=== PATIENT | female | born 1940 | race African-American/Black ===

== ENCOUNTER 2016-07-03 10:07 | Emergency (ER) | payer MEDICARE, MEDICAID ==
[~2016-07-03] VITALS: Ht 180.3 cm; Wt 72.5 kg
[~2016-07-03 10:07] MED LIST: ASPI-1093 PO; LOSA1TAB37 PO; METO25 PO
[2016-07-03] MEDS ORDERED: ASPIRIN 81 MG CHEWABLE TABLET PO ONE (10:30)
[2016-07-03 11:11] LABS: BASOPHILS % (AUTO) 0.4 % (0.0-2.0); EOSINOPHILS % (AUTO) 1.4 % (1.0-6.0); HEMATOCRIT 35.6 % (36-46); HEMOGLOBIN 11.9 g/dL (12.0-16.0); LYMPHOCYTES % (AUTO) 29.9 % (22.0-44.0); MEAN CORPUSCULAR HEMOGLOBIN 30.2 pg (26.0-34.0); MEAN CORPUSCULAR HGB CONC 33.4 G/dL (31.0-37.0); MEAN CORPUSCULAR VOLUME 91 fL (80-100); MONOCYTES # (AUTO) 0.4 K/uL (0.1-1.0); MONOCYTES % (AUTO) 11.8 % (2.0-9.0); NEUTROPHILS % (AUTO) 56.5 % (40.0-70.0); PLATELET COUNT (AUTO) 183 K/uL (150-450); RED BLOOD CELL COUNT(AUTO) 3.93 MIL/uL (4.00-5.20); RED CELL DISTRIBUTION WIDTH 13.8 % (11.5-14.5); WHITE BLOOD COUNT (AUTO) 3.5 K/uL (4.5-11.0)
[2016-07-03 11:12] LABS: RBC MORPHOLOGY COMMENT NORMAL RBC MORPH
[2016-07-03 11:20] LABS: ANION GAP 5 mmol/L (8-16); CALCIUM, TOTAL 10.1 mg/dL (8.8-10.5); CARBON DIOXIDE 31 mmol/L (22-29); CHLORIDE 102 mmol/L (98-107); CREATININE 1.03 mg/dL (0.60-1.30); GLOMERULAR FILTR. RATE CALC > 60 mL/min (>60); POTASSIUM 4.5 mmol/L (3.5-5.1); SODIUM SERUM 138 mmol/L (136-145); UREA NITROGEN, BLOOD 17 mg/dL (7-18)
[2016-07-03 11:28] LABS: PROTHROMBIN TIME 10.8 SEC (9.4-11.6)
[2016-07-03 11:32] LABS: B-TYPE NATRIURETIC PEPTIDE 178 pg/mL (0-100)
[2016-07-03 11:44] LABS: ALANINE AMINOTRANSFERASE 20 U/L (12-78); ALBUMIN 3.3 g/dL (3.4-5.0); ASPARTATE AMINOTRANSFERASE 17 U/L (15-37); BILIRUBIN,TOTAL 0.9 mg/dL (0.1-1.0); CREATINE KINASE MB 0.9 ng/mL (0-5); CREATINE KINASE, TOTAL 78 U/L (26-192); TOTAL PROTEIN, SERUM 7.2 g/dL (6.4-8.2)
[2016-07-03 12:31] LABS: APPEARANCE,URINE CLEAR (CLEAR); GLUCOSE, URINE (UA) NEGATIVE (NEGATIVE); KETONES,URINE NEGATIVE (NEGATIVE); LEUKOCYTE ESTERASE ,URINE SMALL (NEGATIVE); OCCULT BLOOD,URINE TRACE (NEGATIVE); PH,URINE 6.5 (5.0-8.0); PROTEIN,URINE NEGATIVE (NEGATIVE)
[2016-07-03 12:48] LABS: ADD UA MICROSCOPIC YES; RBC,URINE 0-2 /HPF (0-2)
[2016-07-03 12:50] LABS: SQUAMOUS EPITHELIAL CELL,UR Rare /LPF (None Seen)
[2016-07-03] MEDS ORDERED: KETOROLAC TROMETHAMINE 30 MG/ML VIAL IVP ONE (14:00)
[2016-07-03 14:42] VITALS: BP 150/84
== END 2016-07-03 14:45 | disposition home or self-care (01) ==
LOC: EMS 10:08
DX: R07.89 Other chest pain (principal); K21.9 Gastro-esophageal reflux disease without esophagitis; I10 Essential (primary) hypertension
CPT/HCPCS: 36415; 71010; 80053; 81001; 82550; 82553; 83880; 84484; 85025; 85610; 85730; 87077; 87086; 87186; 93005; 96374; 99285; J1885

== ENCOUNTER 2016-12-21 17:54 | Emergency (ER) | payer MEDICARE, MEDICAID ==
[~2016-12-21] VITALS: Ht 180.3 cm; Wt 71.4 kg
[2016-12-21 18:17] LABS: GLUCOSE,POINT OF CARE 97 MG/DL (70-110)
[2016-12-21] MEDS ORDERED: PRAV20TA4 PO (18:19)
[2016-12-21 18:58] LABS: BASOPHILS # (AUTO) 0.04 K/uL (0.00-0.20); BASOPHILS % (AUTO) 0.9 % (0.0-2.0); EOSINOPHILS # (AUTO) 0.09 K/uL (0.00-0.70); EOSINOPHILS % (AUTO) 2.08 % (1.0-6.0); HEMATOCRIT 36.7 % (36-46); HEMOGLOBIN 12.3 g/dL (12.0-16.0); LYMPHOCYTES # (AUTO) 1.3 K/uL (1.0-4.8); LYMPHOCYTES % (AUTO) 30.4 % (22.0-44.0); MEAN CORPUSCULAR HEMOGLOBIN 30.7 pg (26.0-34.0); MEAN CORPUSCULAR HGB CONC 33.5 G/dL (31.0-37.0); MEAN CORPUSCULAR VOLUME 92 fL (80-100); MONOCYTES # (AUTO) 0.5 K/uL (0.1-1.0); MONOCYTES % (AUTO) 11.2 % (2.0-9.0); NEUTROPHILS # (AUTO) 2.4 K/uL (1.8-7.7); NEUTROPHILS % (AUTO) 55.5 % (40.0-70.0); PLATELET COUNT (AUTO) 160 K/uL (150-450); RED BLOOD CELL COUNT(AUTO) 4.01 MIL/uL (4.00-5.20); WHITE BLOOD COUNT (AUTO) 4.3 K/uL (4.5-11.0)
[2016-12-21 19:06] LABS: CALCIUM, TOTAL 10.4 mg/dL (8.8-10.5); CREATININE 1.11 mg/dL (0.60-1.30); POTASSIUM 3.7 mmol/L (3.5-5.1)
[2016-12-21 19:12] LABS: ALBUMIN 3.5 g/dL (3.4-5.0); BILIRUBIN,TOTAL 0.9 mg/dL (0.1-1.0); TOTAL PROTEIN, SERUM 7.6 g/dL (6.4-8.2)
[2016-12-21] MEDS ORDERED: METO50 PO (20:00)
[2016-12-21] MEDS ORDERED: SODIUM CHLORIDE 0.9% 500 ML IV ONE (20:00)
[2016-12-21] MEDS ORDERED: MECLIZINE HCL 25 MG TABLET PO ONE (20:00)
[2016-12-21 21:23] LABS: APPEARANCE,URINE CLEAR (CLEAR); GLUCOSE, URINE (UA) NEGATIVE (NEGATIVE); KETONES,URINE NEGATIVE (NEGATIVE); LEUKOCYTE ESTERASE ,URINE MODERATE (NEGATIVE); OCCULT BLOOD,URINE TRACE (NEGATIVE); PROTEIN,URINE NEGATIVE (NEGATIVE)
[2016-12-21 21:24] LABS: ADD UA MICROSCOPIC YES
[2016-12-21 21:50] LABS: SQUAMOUS EPITHELIAL CELL,UR Few /LPF (None Seen)
[2016-12-21 21:52] LABS: RBC,URINE 0-2 /HPF (0-2)
[2016-12-21] MEDS ORDERED: NITROFURANTOIN/NITROFURAN MAC 100 MG CAPSULE [MACROBID] PO ONE (22:00)
[2016-12-21] MEDS ORDERED: CIPROFLOXACIN HCL 250 MG TABLET PO ONE (22:15)
[2016-12-21 22:30] VITALS: BP 141/82
== END 2016-12-21 22:14 | disposition home or self-care (01) ==
LOC: EMS 17:57
DX: R42 Dizziness and giddiness (principal); N39.0 Urinary tract infection, site not specified; I10 Essential (primary) hypertension; K21.9 Gastro-esophageal reflux disease without esophagitis; Z88.8 Allergy status to other drugs, medicaments and biological substances; Z79.82 Long term (current) use of aspirin; Z90.710 Acquired absence of both cervix and uterus
CPT/HCPCS: 36415; 70450; 80053; 81001; 82962; 84484; 85025; 87077; 87086; 87186; 93005; 96360; 99285; J7040

== ENCOUNTER 2017-07-04 22:55 | Emergency (ER) | payer MEDICARE, MEDICAID ==
[~2017-07-04] VITALS: Ht 180.3 cm; Wt 70.9 kg
[~2017-07-04 22:55] MED LIST changes: -ASPI-1093 PO; +ASPI-1182 PO; -METO25 PO; +METO50 PO; +PRAV20TA4 PO
[2017-07-05 00:48] VITALS: BP 134/80
== END 2017-07-05 00:49 | disposition home or self-care (01) ==
LOC: EMS 22:56
DX: J06.9 Acute upper respiratory infection, unspecified (principal); E78.00 Pure hypercholesterolemia, unspecified; I10 Essential (primary) hypertension; K21.9 Gastro-esophageal reflux disease without esophagitis; Z79.82 Long term (current) use of aspirin; Z88.8 Allergy status to other drugs, medicaments and biological substances
CPT/HCPCS: 99283

== ENCOUNTER 2017-08-30 14:21 | Emergency (ER) | payer MEDICARE, MEDICAID ==
[~2017-08-30] VITALS: Ht 180.3 cm; Wt 63.6 kg
[2017-08-30 14:28] VITALS: BP 131/64
[2017-08-30] MEDS ORDERED: ACETAMINOPHEN 325 MG TABLET PO ONE (17:15)
== END 2017-08-30 18:57 | disposition home or self-care (01) ==
LOC: EMS 14:22
DX: M25.561 Pain in right knee (principal); M25.562 Pain in left knee; K21.9 Gastro-esophageal reflux disease without esophagitis; E78.00 Pure hypercholesterolemia, unspecified; I10 Essential (primary) hypertension; Z79.82 Long term (current) use of aspirin; Z88.8 Allergy status to other drugs, medicaments and biological substances; W10.9XXA Fall (on) (from) unspecified stairs and steps, initial encounter; Y93.89 Activity, other specified; Y92.59 Other trade areas as the place of occurrence of the external cause; Y99.8 Other external cause status
CPT/HCPCS: 99284

== ENCOUNTER 2017-10-24 20:19 | Emergency (ER) | payer OTHER, MEDICARE, MEDICAID ==
[~2017-10-24] VITALS: Ht 180.3 cm; Wt 72.7 kg
[2017-10-24 22:28] LABS: BASOPHILS % (AUTO) 0.5 % (0.0-2.0); EOSINOPHILS % (AUTO) 2.2 % (1.0-6.0); HEMATOCRIT 35.6 % (36-46); HEMOGLOBIN 12.3 g/dL (12.0-16.0); LYMPHOCYTES # (AUTO) 1.7 K/uL (1.0-4.8); LYMPHOCYTES % (AUTO) 35.2 % (22.0-44.0); MEAN CORPUSCULAR HEMOGLOBIN 30.8 pg (26.0-34.0); MEAN CORPUSCULAR HGB CONC 34.6 G/dL (31.0-37.0); MEAN CORPUSCULAR VOLUME 89 fL (80-100); MONOCYTES # (AUTO) 0.5 K/uL (0.1-1.0); MONOCYTES % (AUTO) 10.8 % (2.0-9.0); NEUTROPHILS # (AUTO) 2.4 K/uL (1.8-7.7); NEUTROPHILS % (AUTO) 51.3 % (40.0-70.0); PLATELET COUNT (AUTO) 178 K/uL (150-450); RED BLOOD CELL COUNT(AUTO) 3.99 MIL/uL (4.00-5.20); RED CELL DISTRIBUTION WIDTH 13.7 % (11.5-14.5)
[2017-10-24 22:41] LABS: CALCIUM, TOTAL 10.3 mg/dL (8.8-10.5); CREATININE 1.12 mg/dL (0.60-1.30); POTASSIUM 4.5 mmol/L (3.5-5.1)
[2017-10-24 22:47] LABS: ALBUMIN 3.7 g/dL (3.4-5.0); BILIRUBIN,TOTAL 0.9 mg/dL (0.1-1.0); TOTAL PROTEIN, SERUM 7.9 g/dL (6.4-8.2)
[2017-10-24 23:45] VITALS: BP 135/79
== END 2017-10-24 23:55 | disposition home or self-care (01) ==
LOC: EMS 20:19
DX: I10 Essential (primary) hypertension (principal); K21.9 Gastro-esophageal reflux disease without esophagitis; E78.00 Pure hypercholesterolemia, unspecified; D64.9 Anemia, unspecified; Z79.82 Long term (current) use of aspirin; Z79.899 Other long term (current) drug therapy; Z88.8 Allergy status to other drugs, medicaments and biological substances
CPT/HCPCS: 93005; 99285

== ENCOUNTER 2019-06-18 17:47 | Emergency (ER) | payer MEDICARE, MEDICAID ==
[~2019-06-18] VITALS: Ht 180.3 cm; Wt 75.0 kg
[~2019-06-18 17:47] MED LIST changes: +ASPI-1111 PO; -ASPI-1182 PO
[2019-06-18 18:24] LABS: BASOPHILS % (AUTO) 0.6 % (0.0-2.0); EOSINOPHILS % (AUTO) 1.6 % (1.0-6.0); HEMATOCRIT 38.4 % (36-46); LYMPHOCYTES # (AUTO) 1.6 K/uL (1.0-4.8); LYMPHOCYTES % (AUTO) 32.3 % (22.0-44.0); MEAN CORPUSCULAR HGB CONC 33.7 G/dL (31.0-37.0); MEAN CORPUSCULAR VOLUME 92 fL (80-100); MONOCYTES # (AUTO) 0.5 K/uL (0.1-1.0); MONOCYTES % (AUTO) 10.8 % (2.0-9.0); NEUTROPHILS # (AUTO) 2.7 K/uL (1.8-7.7); NEUTROPHILS % (AUTO) 54.7 % (40.0-70.0); PLATELET COUNT (AUTO) 197 K/uL (150-450); RED BLOOD CELL COUNT(AUTO) 4.18 MIL/uL (4.00-5.20); RED CELL DISTRIBUTION WIDTH 13.6 % (11.5-14.5)
[2019-06-18 18:32] LABS: CALCIUM, TOTAL 9.9 mg/dL (8.8-10.5); CREATININE 1.4 mg/dL (0.60-1.30); POTASSIUM 3.9 mmol/L (3.5-5.1)
[2019-06-18 18:38] LABS: ALBUMIN 3.8 g/dL (3.4-5.0); BILIRUBIN,TOTAL 0.8 mg/dL (0.1-1.0)
[2019-06-18 22:24] VITALS: BP 167/75
[2019-06-18] MEDS ORDERED: FAMOTIDINE 20 MG TABLET PO ONE (22:30)
== END 2019-06-18 23:00 | disposition home or self-care (01) ==
LOC: EMS 17:49
DX: R07.89 Other chest pain (principal); E78.00 Pure hypercholesterolemia, unspecified; I10 Essential (primary) hypertension; K21.9 Gastro-esophageal reflux disease without esophagitis; Z90.710 Acquired absence of both cervix and uterus; Z98.890 Other specified postprocedural states; Z79.899 Other long term (current) drug therapy; Z85.038 Personal history of other malignant neoplasm of large intestine; Z79.82 Long term (current) use of aspirin; Z88.8 Allergy status to other drugs, medicaments and biological substances
CPT/HCPCS: 93005

== ENCOUNTER 2021-04-16 11:12 | Emergency (ER) | payer MEDICAID, MEDICARE ==
[~2021-04-16] VITALS: Ht 180.3 cm; Wt 79.0 kg
[~2021-04-16 11:12] MED LIST changes: -ASPI-1111 PO; +ASPI-1444 PO
[2021-04-16 12:33] LABS: BASOPHILS % (AUTO) 0.5 % (0.0-2.0); HEMATOCRIT 42.1 % (36-46); HEMOGLOBIN 14.1 g/dL (12.0-16.0); LYMPHOCYTES # (AUTO) 1.6 K/uL (1.0-4.8); LYMPHOCYTES % (AUTO) 27.1 % (22.0-44.0); MEAN CORPUSCULAR HGB CONC 33.4 G/dL (31.0-37.0); MEAN CORPUSCULAR VOLUME 93 fL (80-100); MONOCYTES # (AUTO) 0.6 K/uL (0.1-1.0); MONOCYTES % (AUTO) 9.8 % (2.0-9.0); NEUTROPHILS # (AUTO) 3.6 K/uL (1.8-7.7); NEUTROPHILS % (AUTO) 61.6 % (40.0-70.0); PLATELET COUNT (AUTO) 195 K/uL (150-450); RED BLOOD CELL COUNT(AUTO) 4.55 MIL/uL (4.00-5.20); RED CELL DISTRIBUTION WIDTH 13.9 % (11.5-14.5)
[2021-04-16 12:43] LABS: CALCIUM, TOTAL 8.7 mg/dL (8.8-10.5); CREATININE 1.3 mg/dL (0.60-1.30); POTASSIUM 3.5 mmol/L (3.5-5.1)
[2021-04-16 12:49] LABS: ALBUMIN 3.8 g/dL (3.4-5.0); TOTAL PROTEIN, SERUM 8.6 g/dL (6.4-8.2)
[2021-04-16 13:17] LABS: APPEARANCE,URINE CLEAR (CLEAR); BILIRUBIN,URINE NEGATIVE (NEGATIVE); GLUCOSE, URINE (UA) NEGATIVE (NEGATIVE); KETONES,URINE NEGATIVE (NEGATIVE); LEUKOCYTE ESTERASE ,URINE NEGATIVE (NEGATIVE); NITRATE,URINE NEGATIVE (NEGATIVE); OCCULT BLOOD,URINE TRACE (NEGATIVE); PROTEIN,URINE NEGATIVE (NEGATIVE); UROBILINOGEN,URINE 0.2 mg/dL (<=1.0)
[2021-04-16 13:31] LABS: RBC,URINE None Seen /HPF (0-2)
[2021-04-16 13:32] LABS: BACTERIA,URINE None Seen /HPF (None Seen); SQUAMOUS EPITHELIAL CELL,UR Few /LPF (None Seen)
[2021-04-16 13:45] VITALS: BP 119/63
== END 2021-04-16 14:34 | disposition home or self-care (01) ==
LOC: EMS 11:12
DX: N39.0 Urinary tract infection, site not specified (principal); I10 Essential (primary) hypertension
CPT/HCPCS: 80053; 81001; 85025; 87077; 87086; 87186; 99283

== ENCOUNTER 2021-05-06 02:31 | Emergency (ER) | payer MEDICARE ==
[~2021-05-06] VITALS: Ht 180.3 cm; Wt 79.0 kg
[2021-05-06] MEDS ORDERED: CALC0.5C PO (02:44)
[2021-05-06] MEDS ORDERED: MAG HYDROX/AL HYDROX/SIMETH 30 ML SUSP UDCUP PO ONE (02:45)
[2021-05-06] MEDS ORDERED: ACETAMINOPHEN 500 MG TABLET PO ONE (02:45)
[2021-05-06 02:55] LABS: BASOPHILS % (AUTO) 0.7 % (0.0-2.0); EOSINOPHILS % (AUTO) 1.4 % (1.0-6.0); HEMATOCRIT 39.3 % (36-46); HEMOGLOBIN 13.6 g/dL (12.0-16.0); LYMPHOCYTES # (AUTO) 1.5 K/uL (1.0-4.8); LYMPHOCYTES % (AUTO) 31.9 % (22.0-44.0); MEAN CORPUSCULAR HGB CONC 34.6 G/dL (31.0-37.0); MEAN CORPUSCULAR VOLUME 90 fL (80-100); MONOCYTES # (AUTO) 0.5 K/uL (0.1-1.0); NEUTROPHILS # (AUTO) 2.7 K/uL (1.8-7.7); PLATELET COUNT (AUTO) 205 K/uL (150-450); RED BLOOD CELL COUNT(AUTO) 4.38 MIL/uL (4.00-5.20); RED CELL DISTRIBUTION WIDTH 13.3 % (11.5-14.5)
[2021-05-06 03:02] LABS: ANION GAP 5 mmol/L (8-16); CALCIUM, TOTAL 9.4 mg/dL (8.8-10.5); CARBON DIOXIDE 31 mmol/L (22-29); CHLORIDE 101 mmol/L (98-107); CREATININE 1.05 mg/dL (0.60-1.30); GLUCOSE,RANDOM 117 mg/dL (70-110); POTASSIUM 4.4 mmol/L (3.5-5.1); SODIUM SERUM 137 mmol/L (136-145); UREA NITROGEN, BLOOD 21 mg/dL (7-18)
[2021-05-06 03:05] LABS: GLOMERULAR FILTR. RATE CALC > 60 mL/min (>60)
[2021-05-06 03:12] LABS: COVID AG,FIA SOURCE NASOPHARYNGEAL
[2021-05-06 03:14] LABS: ALANINE AMINOTRANSFERASE 14 U/L (12-78); ALBUMIN 3.8 g/dL (3.4-5.0); ALKALINE PHOSPHATASE 83 U/L (46-116); ASPARTATE AMINOTRANSFERASE 19 U/L (15-37); BILIRUBIN,TOTAL 1.2 mg/dL (0.1-1.0); CREATINE KINASE, TOTAL ONLY 97 U/L (26-192); PHOSPHORUS 3.3 mg/dL (2.5-4.9); TOTAL PROTEIN, SERUM 8.3 g/dL (6.4-8.2)
[2021-05-06 03:25] LABS: B-TYPE NATRIURETIC PEPTIDE 87 pg/mL (0-100)
[2021-05-06 06:05] VITALS: BP 132/76
== END 2021-05-06 06:23 | disposition home or self-care (01) ==
LOC: EMS 02:31
DX: R00.2 Palpitations (principal); I10 Essential (primary) hypertension; E11.9 Type 2 diabetes mellitus without complications; Z88.8 Allergy status to other drugs, medicaments and biological substances; Z79.899 Other long term (current) drug therapy; Z79.82 Long term (current) use of aspirin; Z20.822 Contact with and (suspected) exposure to COVID-19
CPT/HCPCS: 71045; 80053; 82550; 83735; 83880; 84100; 84484; 85025; 93005; 99285; 36415-L1; 36415-TC

== ENCOUNTER 2022-01-26 10:50 | Emergency (ER) | payer MEDICARE ==
[~2022-01-26] VITALS: Ht 180.3 cm; Wt 76.4 kg
[~2022-01-26 10:50] MED LIST changes: +CALC0.5C PO
[2022-01-26 11:02] VITALS: BP 124/70
[2022-01-26 12:03] LABS: BASOPHILS % (AUTO) 0.9 % (0.0-2.0); EOSINOPHILS % (AUTO) 1.5 % (1.0-6.0); HEMATOCRIT 37.5 % (36-46); HEMOGLOBIN 12.4 g/dL (12.0-16.0); LYMPHOCYTES # (AUTO) 1.1 K/uL (1.0-4.8); LYMPHOCYTES % (AUTO) 25.3 % (22.0-44.0); MEAN CORPUSCULAR HGB CONC 33.1 G/dL (31.0-37.0); MEAN CORPUSCULAR VOLUME 91 fL (80-100); MONOCYTES # (AUTO) 0.4 K/uL (0.1-1.0); MONOCYTES % (AUTO) 8.7 % (2.0-9.0); NEUTROPHILS # (AUTO) 2.7 K/uL (1.8-7.7); NEUTROPHILS % (AUTO) 63.6 % (40.0-70.0); PLATELET COUNT (AUTO) 161 K/uL (150-450); RED BLOOD CELL COUNT(AUTO) 4.14 MIL/uL (4.00-5.20); RED CELL DISTRIBUTION WIDTH 14.4 % (11.5-14.5)
[2022-01-26 12:13] LABS: CALCIUM, TOTAL 8.6 mg/dL (8.8-10.5); CREATININE 1.06 mg/dL (0.60-1.30); POTASSIUM 3.2 mmol/L (3.5-5.1)
[2022-01-26 12:19] LABS: ALBUMIN 3.2 g/dL (3.4-5.0); BILIRUBIN,TOTAL 1.1 mg/dL (0.1-1.0); TOTAL PROTEIN, SERUM 7.3 g/dL (6.4-8.2)
[2022-01-26 12:36] LABS: COVID AG,FIA SOURCE NASOPHARYNGEAL
== END 2022-01-26 11:55 | disposition home or self-care (01) ==
LOC: EMS 10:53
DX: H53.131 Sudden visual loss, right eye (principal); E78.00 Pure hypercholesterolemia, unspecified; I10 Essential (primary) hypertension; E78.5 Hyperlipidemia, unspecified; Z98.890 Other specified postprocedural states; Z88.8 Allergy status to other drugs, medicaments and biological substances; Z20.822 Contact with and (suspected) exposure to COVID-19
CPT/HCPCS: 99283; 87426; 80053; 85025; 36415; C9803

== ENCOUNTER 2023-05-21 17:36 | Emergency (ER) | payer MEDICARE ==
[~2023-05-21] VITALS: Ht 180.3 cm; Wt 76.4 kg
[~2023-05-21 17:36] MED LIST changes: -CALC0.5C PO
[2023-05-21 17:43] VITALS: TEMP 98.1
[2023-05-21 18:07] LABS: EOSINOPHILS % (AUTO) 2.6 % (1.0-6.0); HEMATOCRIT 37.3 % (36-46); HEMOGLOBIN 12.7 g/dL (12.0-16.0); LYMPHOCYTES # (AUTO) 1.5 K/uL (1.0-4.8); LYMPHOCYTES % (AUTO) 28.5 % (22.0-44.0); MEAN CORPUSCULAR HEMOGLOBIN 31.2 pg (26.0-34.0); MEAN CORPUSCULAR VOLUME 92 fL (80-100); MONOCYTES # (AUTO) 0.6 K/uL (0.1-1.0); MONOCYTES % (AUTO) 11.1 % (2.0-9.0); NEUTROPHILS % (AUTO) 56.8 % (40.0-70.0); PLATELET COUNT (AUTO) 183 K/uL (150-450); RED BLOOD CELL COUNT(AUTO) 4.07 MIL/uL (4.00-5.20); RED CELL DISTRIBUTION WIDTH 13.8 % (11.5-14.5); WHITE BLOOD COUNT (AUTO) 5.2 K/uL (4.5-11.0)
[2023-05-21 18:18] LABS: CALCIUM, TOTAL 9.1 mg/dL (8.8-10.5); CREATININE 1.21 mg/dL (0.60-1.30); POTASSIUM 3.5 mmol/L (3.5-5.1)
[2023-05-21 18:24] LABS: ALBUMIN 3.7 g/dL (3.4-5.0); BILIRUBIN,TOTAL 0.9 mg/dL (0.1-1.0); TOTAL PROTEIN, SERUM 8.4 g/dL (6.4-8.2)
[2023-05-21 18:26] LABS: TROPONIN I-HIGH SENSITIVITY 12 ng/L (<51)
[2023-05-21 18:52] VITALS: BP 157/81; PULSE 82; RESP 17
[2023-05-21 19:10] LABS: APPEARANCE,URINE TURBID (CLEAR); BILIRUBIN,URINE NEGATIVE (NEGATIVE); COLOR,URINE YELLOW (YELLOW); GLUCOSE, URINE (UA) NEGATIVE (NEGATIVE); KETONES,URINE NEGATIVE (NEGATIVE); LEUKOCYTE ESTERASE ,URINE LARGE (NEGATIVE); NITRATE,URINE POSITIVE (NEGATIVE); OCCULT BLOOD,URINE SMALL (NEGATIVE); PH,URINE 5.5 (5.0-8.0); PROTEIN,URINE TRACE mg/dL (NEGATIVE); SPECIFIC GRAVITIY, URINE 1.016 (1.003-1.030); UROBILINOGEN,URINE <=1.0 mg/dL (<=1.0)
[2023-05-21 19:22] LABS: BACTERIA,URINE Few /HPF (None Seen); SQUAMOUS EPITHELIAL CELL,UR Few /LPF (None Seen); WBC,URINE >100 /HPF (0-5)
[2023-05-21] MEDS ORDERED: CEPH-558 PO (19:32)
== END 2023-05-21 20:02 | disposition home or self-care (01) ==
LOC: EMS 17:38
DX: R06.00 Dyspnea, unspecified (principal); E78.00 Pure hypercholesterolemia, unspecified; I10 Essential (primary) hypertension; Z98.890 Other specified postprocedural states; R53.1 Weakness; Z88.8 Allergy status to other drugs, medicaments and biological substances
CPT/HCPCS: 71045; 80053; 81001; 83880; 84484; 85025; 85379; 87086; 87186; 93005; 99285; 36415-L1; 36415-TC

== ENCOUNTER 2023-06-06 14:04 | Emergency (ER) | payer MEDICARE ==
[~2023-06-06] VITALS: Ht 180.3 cm; Wt 65.9 kg
[~2023-06-06 14:04] MED LIST changes: +CEPH-558 PO
[2023-06-06 14:38] LABS: BASOPHILS % (AUTO) 1.3 % (0.0-2.0); EOSINOPHILS % (AUTO) 3.1 % (1.0-6.0); HEMATOCRIT 36.2 % (36-46); HEMOGLOBIN 12.6 g/dL (12.0-16.0); LYMPHOCYTES # (AUTO) 1.4 K/uL (1.0-4.8); LYMPHOCYTES % (AUTO) 32.4 % (22.0-44.0); MEAN CORPUSCULAR HEMOGLOBIN 31.6 pg (26.0-34.0); MEAN CORPUSCULAR HGB CONC 34.8 G/dL (31.0-37.0); MEAN CORPUSCULAR VOLUME 91 fL (80-100); MONOCYTES # (AUTO) 0.6 K/uL (0.1-1.0); MONOCYTES % (AUTO) 13.8 % (2.0-9.0); NEUTROPHILS # (AUTO) 2.1 K/uL (1.8-7.7); NEUTROPHILS % (AUTO) 49.4 % (40.0-70.0); PLATELET COUNT (AUTO) 189 K/uL (150-450); RED BLOOD CELL COUNT(AUTO) 3.98 MIL/uL (4.00-5.20); RED CELL DISTRIBUTION WIDTH 13.9 % (11.5-14.5); WHITE BLOOD COUNT (AUTO) 4.3 K/uL (4.5-11.0)
[2023-06-06 14:51] LABS: ANION GAP 10 mmol/L (8-16); CARBON DIOXIDE 28 mmol/L (22-29); CHLORIDE 100 mmol/L (98-107); CREATININE 0.92 mg/dL (0.60-1.30); GLOMERULAR FILTR. RATE CALC > 60 mL/min (>60); GLUCOSE,RANDOM 101 mg/dL (70-110); POTASSIUM 3.7 mmol/L (3.5-5.1); SODIUM SERUM 138 mmol/L (136-145); UREA NITROGEN, BLOOD 19 mg/dL (7-18)
[2023-06-06 14:56] LABS: ALANINE AMINOTRANSFERASE 21 U/L (12-78); ALBUMIN 3.5 g/dL (3.4-5.0); ALKALINE PHOSPHATASE 98 U/L (46-116); ASPARTATE AMINOTRANSFERASE 21 U/L (15-37); BILIRUBIN,TOTAL 0.6 mg/dL (0.1-1.0); TOTAL PROTEIN, SERUM 7.8 g/dL (6.4-8.2)
[2023-06-06 15:01] LABS: AMMONIA 17 umol/L (11-32); TROPONIN I-HIGH SENSITIVITY 16 ng/L (<51)
[2023-06-06 15:02] LABS: CALCIUM, TOTAL 8.4 mg/dL (8.8-10.5)
[2023-06-06 15:23] LABS: APPEARANCE,URINE TURBID (CLEAR); BILIRUBIN,URINE NEGATIVE (NEGATIVE); COLOR,URINE YELLOW (YELLOW); GLUCOSE, URINE (UA) NEGATIVE (NEGATIVE); KETONES,URINE NEGATIVE (NEGATIVE); LEUKOCYTE ESTERASE ,URINE LARGE (NEGATIVE); NITRATE,URINE POSITIVE (NEGATIVE); OCCULT BLOOD,URINE SMALL (NEGATIVE); PH,URINE 5.5 (5.0-8.0); PH,URINE DRUG SCREEN 5.5 (5.0-8.0); PROTEIN,URINE TRACE mg/dL (NEGATIVE); SPECIFIC GRAVITIY, URINE 1.015 (1.003-1.030); UROBILINOGEN,URINE <=1.0 mg/dL (<=1.0)
[2023-06-06 15:29] LABS: ALCOHOL, URINE DRUG SCREEN NEGATIVE (NEGATIVE); AMPHET/METH SCREEN,URINE NEGATIVE (NEGATIVE); BARBITURATE SCREEN, URINE NEGATIVE (NEGATIVE); BENZODIAZEPINES SCREEN,URINE NEGATIVE (NEGATIVE); CANNABINOID SCREEN,URINE NEGATIVE (NEGATIVE); COCAINE SCREEN,URINE NEGATIVE (NEGATIVE); METHADONE SCREEN, URINE NEGATIVE (NEGATIVE); OPIATE SCREEN,URINE NEGATIVE (NEGATIVE); PHENCYCLIDINE SCREEN,URINE NEGATIVE (NEGATIVE)
[2023-06-06 15:38] LABS: WBC,URINE >100 /HPF (0-5)
[2023-06-06 15:39] LABS: BACTERIA,URINE Many /HPF (None Seen); RBC,URINE 0-2 /HPF (0-2)
[2023-06-06] MEDS ORDERED: CefTRIAXone 1 GM/DEXTROSE 50 ML IV ONE (16:00)
[2023-06-06 16:43] LABS: COVID AG,FIA SOURCE NASAL SWAB
[2023-06-06 17:17] LABS: SARS-COV2 (COVID) ANTIGEN,FIA Negative (Negative)
[2023-06-06 19:15] VITALS: BP 164/92; PULSE 72; RESP 18; TEMP 98.4
[2023-06-06] MEDS ORDERED: SULF-261 PO (19:16)
== END 2023-06-06 19:54 | disposition left against medical advice (07) ==
LOC: EMS 14:04
DX: N39.0 Urinary tract infection, site not specified (principal); R53.1 Weakness; E78.00 Pure hypercholesterolemia, unspecified; I10 Essential (primary) hypertension; Z98.890 Other specified postprocedural states; Z88.8 Allergy status to other drugs, medicaments and biological substances; Z20.822 Contact with and (suspected) exposure to COVID-19
CPT/HCPCS: 99285; 96365; 70450; 71045; 96366; 87426; 80053; 81001; 82140; 84484; 85025; 87040; 36415; 87086; 87186; 93005; 80307; J0696

== ENCOUNTER 2023-09-27 10:58 | Emergency (ER) | payer MEDICARE ==
[~2023-09-27] VITALS: Ht 180.3 cm; Wt 72.7 kg
[~2023-09-27 10:58] MED LIST changes: -ASPI-1444 PO; -CEPH-558 PO; +SULF-261 PO
[2023-09-27 10:59] VITALS: TEMP 98.7
[2023-09-27 11:35] LABS: BASOPHILS % (AUTO) 0.8 % (0.0-2.0); EOSINOPHILS % (AUTO) 3.3 % (1.0-6.0); HEMATOCRIT 38.8 % (36-46); HEMOGLOBIN 13.3 g/dL (12.0-16.0); LYMPHOCYTES # (AUTO) 1.4 K/uL (1.0-4.8); LYMPHOCYTES % (AUTO) 36.4 % (22.0-44.0); MEAN CORPUSCULAR HEMOGLOBIN 31.4 pg (26.0-34.0); MEAN CORPUSCULAR HGB CONC 34.3 G/dL (31.0-37.0); MEAN CORPUSCULAR VOLUME 91 fL (80-100); MONOCYTES # (AUTO) 0.4 K/uL (0.1-1.0); MONOCYTES % (AUTO) 10.9 % (2.0-9.0); NEUTROPHILS # (AUTO) 1.9 K/uL (1.8-7.7); NEUTROPHILS % (AUTO) 48.6 % (40.0-70.0); PLATELET COUNT (AUTO) 191 K/uL (150-450); RED BLOOD CELL COUNT(AUTO) 4.24 MIL/uL (4.00-5.20); RED CELL DISTRIBUTION WIDTH 13.6 % (11.5-14.5)
[2023-09-27 11:48] LABS: CALCIUM, TOTAL 8.9 mg/dL (8.8-10.5); CREATININE 1.05 mg/dL (0.60-1.30)
[2023-09-27 11:53] LABS: TROPONIN I-HIGH SENSITIVITY 9 ng/L (<51)
[2023-09-27 11:54] LABS: ALBUMIN 3.5 g/dL (3.4-5.0); BILIRUBIN,TOTAL 1.4 mg/dL (0.1-1.0); TOTAL PROTEIN, SERUM 8.6 g/dL (6.4-8.2)
[2023-09-27] MEDS: SODIUM CHLORIDE 0.9% 1,000 ML IV ONE (14:45)
[2023-09-27 14:59] LABS: APPEARANCE,URINE HAZY (CLEAR); BILIRUBIN,URINE NEGATIVE (NEGATIVE); COLOR,URINE LIGHT YELLOW (YELLOW); GLUCOSE, URINE (UA) NEGATIVE (NEGATIVE); KETONES,URINE NEGATIVE (NEGATIVE); LEUKOCYTE ESTERASE ,URINE LARGE (NEGATIVE); NITRATE,URINE POSITIVE (NEGATIVE); OCCULT BLOOD,URINE TRACE (NEGATIVE); PROTEIN,URINE TRACE mg/dL (NEGATIVE); SPECIFIC GRAVITIY, URINE 1.015 (1.003-1.030); UROBILINOGEN,URINE <=1.0 mg/dL (<=1.0)
[2023-09-27] MEDS ORDERED: NITR100C4 PO (15:14)
[2023-09-27 15:35] LABS: BACTERIA,URINE Many /HPF (None Seen); RBC,URINE 0-2 /HPF (0-2); SQUAMOUS EPITHELIAL CELL,UR None Seen /LPF (None Seen); WBC,URINE 26-50 /HPF (0-5)
[2023-09-27] MEDS: SULFAMETHOX/TRIMETH DS 800-160 MG/TABLET PO ONE (15:36)
[2023-09-27 15:49] LABS: TROPONIN I-HIGH SENSITIVITY 11 ng/L (<51)
[2023-09-27 16:09] VITALS: BP 149/86; PULSE 68; RESP 16
== END 2023-09-27 16:14 | disposition home or self-care (01) ==
LOC: EMS 11:00
DX: N39.0 Urinary tract infection, site not specified (principal); E86.0 Dehydration; R07.89 Other chest pain; E78.00 Pure hypercholesterolemia, unspecified; I10 Essential (primary) hypertension; Z98.890 Other specified postprocedural states; Z88.8 Allergy status to other drugs, medicaments and biological substances
CPT/HCPCS: 99285; 96360; 70450; 71045; 80053; 81001; 84484; 85025; 36415; 87086; 87186; 93005; J7030

== ENCOUNTER 2024-02-07 17:15 | Emergency (ER) | payer MEDICARE ==
[~2024-02-07] VITALS: Ht 180.3 cm; Wt 74.5 kg
[~2024-02-07 17:15] MED LIST changes: +NITR100C4 PO; -SULF-261 PO
[2024-02-07 17:20] VITALS: TEMP 98.5
[2024-02-07 17:40] LABS: BASOPHILS % (AUTO) 0.2 % (0.0-2.0); EOSINOPHILS % (AUTO) 3.2 % (1.0-6.0); HEMATOCRIT 38.5 % (36-46); HEMOGLOBIN 12.8 g/dL (12.0-16.0); LYMPHOCYTES # (AUTO) 1.9 K/uL (1.0-4.8); LYMPHOCYTES % (AUTO) 38.9 % (22.0-44.0); MEAN CORPUSCULAR HEMOGLOBIN 30.3 pg (26.0-34.0); MEAN CORPUSCULAR HGB CONC 33.1 G/dL (31.0-37.0); MEAN CORPUSCULAR VOLUME 92 fL (80-100); MONOCYTES # (AUTO) 0.6 K/uL (0.1-1.0); NEUTROPHILS # (AUTO) 2.2 K/uL (1.8-7.7); NEUTROPHILS % (AUTO) 44.7 % (40.0-70.0); PLATELET COUNT (AUTO) 179 K/uL (150-450); RED BLOOD CELL COUNT(AUTO) 4.21 MIL/uL (4.00-5.20); RED CELL DISTRIBUTION WIDTH 14.1 % (11.5-14.5)
[2024-02-07 17:52] LABS: ANION GAP 7 mmol/L (8-16); CALCIUM, TOTAL 8.1 mg/dL (8.8-10.5); CARBON DIOXIDE 29 mmol/L (22-29); CHLORIDE 100 mmol/L (98-107); CREATININE 0.96 mg/dL (0.60-1.30); GLOMERULAR FILTR. RATE CALC > 60 mL/min (>60); GLUCOSE,RANDOM 111 mg/dL (70-110); POTASSIUM 3.4 mmol/L (3.5-5.1); SODIUM SERUM 136 mmol/L (136-145); UREA NITROGEN, BLOOD 16 mg/dL (7-18)
[2024-02-07 18:01] LABS: TROPONIN I-HIGH SENSITIVITY 11 ng/L (<51)
[2024-02-07 19:55] VITALS: BP 168/76; PULSE 64; RESP 16; O2SAT 98
[2024-02-07 20:20] LABS: APPEARANCE,URINE HAZY (CLEAR); BILIRUBIN,URINE NEGATIVE (NEGATIVE); COLOR,URINE LIGHT YELLOW (YELLOW); GLUCOSE, URINE (UA) NEGATIVE (NEGATIVE); KETONES,URINE NEGATIVE (NEGATIVE); LEUKOCYTE ESTERASE ,URINE LARGE (NEGATIVE); NITRATE,URINE POSITIVE (NEGATIVE); OCCULT BLOOD,URINE TRACE (NEGATIVE); PH,URINE 6.5 (5.0-8.0); PROTEIN,URINE NEGATIVE (NEGATIVE); UROBILINOGEN,URINE <=1.0 mg/dL (<=1.0)
[2024-02-07 20:56] LABS: BACTERIA,URINE Many /HPF (None Seen); WBC,URINE >100 /HPF (0-5)
[2024-02-07] MEDS ORDERED: LEVO-72 PO (21:18)
[2024-02-07] MEDS: LEVOFLOXACIN 500 MG/D5% WATER 100 ML IV ONE (22:13)
== END 2024-02-07 23:51 | disposition home or self-care (01) ==
LOC: EMS 17:15
DX: N39.0 Urinary tract infection, site not specified (principal); R00.2 Palpitations; R07.89 Other chest pain; E78.00 Pure hypercholesterolemia, unspecified; I10 Essential (primary) hypertension; Z98.890 Other specified postprocedural states
CPT/HCPCS: 99285; 96365; 71045; 80048; 81001; 83880; 84484; 85025; 36415; 87086; 87186; 93005; J1956

== ENCOUNTER 2024-02-19 15:52 | Emergency (ER) | payer MEDICARE ==
[~2024-02-19] VITALS: Ht 175.3 cm; Wt 83.0 kg
[~2024-02-19 15:52] MED LIST changes: +LEVO-72 PO
[2024-02-19 15:59] VITALS: BP 175/69; PULSE 77; RESP 16; TEMP 99.2; O2SAT 98
[2024-02-19] MEDS ORDERED: LOSA1TAB42 PO (15:59)
[2024-02-19 16:09] LABS: COVID AG,FIA SOURCE NASAL SWAB
[2024-02-19 16:29] LABS: SARS-COV2 (COVID) ANTIGEN,FIA Negative (Negative)
[2024-02-19 16:30] LABS: INFLUENZA TYPE A NEGATIVE FOR TYPE A (NEGATIVE); INFLUENZA TYPE B NEGATIVE FOR TYPE B (NEGATIVE)
[2024-02-19 17:46] LABS: APPEARANCE,URINE CLEAR (CLEAR); BILIRUBIN,URINE NEGATIVE (NEGATIVE); COLOR,URINE LIGHT YELLOW (YELLOW); GLUCOSE, URINE (UA) NEGATIVE (NEGATIVE); KETONES,URINE NEGATIVE (NEGATIVE); LEUKOCYTE ESTERASE ,URINE NEGATIVE (NEGATIVE); NITRATE,URINE NEGATIVE (NEGATIVE); OCCULT BLOOD,URINE NEGATIVE (NEGATIVE); PROTEIN,URINE NEGATIVE (NEGATIVE); SPECIFIC GRAVITIY, URINE 1.013 (1.003-1.030); UROBILINOGEN,URINE <=1.0 mg/dL (<=1.0)
== END 2024-02-19 19:01 | disposition home or self-care (01) ==
LOC: EMS 15:52
DX: J02.9 Acute pharyngitis, unspecified (principal); E78.00 Pure hypercholesterolemia, unspecified; I10 Essential (primary) hypertension; Z98.890 Other specified postprocedural states; Z88.1 Allergy status to other antibiotic agents; Z20.822 Contact with and (suspected) exposure to COVID-19
CPT/HCPCS: 81003; 87804; 99283

== ENCOUNTER 2025-01-27 11:31 | Emergency (ER) | payer MEDICARE ==
[~2025-01-27] VITALS: Ht 180.3 cm; Wt 65.5 kg
[~2025-01-27 11:31] MED LIST changes: -LEVO-72 PO; -LOSA1TAB37 PO; +LOSA1TAB42 PO; -PRAV20TA4 PO; +PRAV20TA59 PO
[2025-01-27 11:49] VITALS: TEMP 97.9
[2025-01-27 12:27] LABS: PLATELET COUNT (AUTO) 160 K/uL (150-450); RED BLOOD CELL COUNT(AUTO) 4.27 MIL/uL (4.00-5.20); RED CELL DISTRIBUTION WIDTH 13.8 % (11.5-14.5); WHITE BLOOD COUNT (AUTO) 3.9 K/uL (4.5-11.0)
[2025-01-27 12:45] LABS: SODIUM SERUM 136.0 mmol/L (136-145)
[2025-01-27 12:47] LABS: CALCIUM, TOTAL 8.7 mg/dL (8.8-10.5); CREATININE 1.15 mg/dL (0.60-1.30); GLOMERULAR FILTR. RATE CALC 54.0 mL/min (>60); GLUCOSE,RANDOM 97.0 mg/dL (70-110); UREA NITROGEN, BLOOD 18.0 mg/dL (7-18)
[2025-01-27 13:27] LABS: ASPARTATE AMINOTRANSFERASE 21.0 U/L (15-37); TOTAL PROTEIN, SERUM 8.0 g/dL (6.4-8.2)
[2025-01-27 14:10] LABS: APPEARANCE,URINE HAZY (CLEAR); GLUCOSE, URINE (UA) NEGATIVE (NEGATIVE); LEUKOCYTE ESTERASE ,URINE LARGE (NEGATIVE); NITRATE,URINE POSITIVE (NEGATIVE); OCCULT BLOOD,URINE TRACE (NEGATIVE); SPECIFIC GRAVITIY, URINE 1.007 (1.003-1.030)
[2025-01-27 14:14] LABS: COVID AG,FIA SOURCE NASAL SWAB
[2025-01-27 14:15] LABS: TROPONIN I-HIGH SENSITIVITY 13 ng/L (<51)
[2025-01-27 14:17] LABS: SQUAMOUS EPITHELIAL CELL,UR Few /LPF (None Seen)
[2025-01-27 14:39] LABS: INFLUENZA TYPE A NEGATIVE FOR TYPE A (NEGATIVE); INFLUENZA TYPE B NEGATIVE FOR TYPE B (NEGATIVE); SARS-COV2 (COVID) ANTIGEN,FIA Negative (Negative)
[2025-01-27 15:00] VITALS: BP 157/78; PULSE 54; RESP 17; O2SAT 99
[2025-01-27] MEDS: LEVOFLOXACIN 750 MG/D5% WATER 150 ML IV ONE (15:05)
== END 2025-01-27 17:28 | disposition short-term general hospital (02) ==
LOC: EMS 11:36
DX: N39.0 Urinary tract infection, site not specified (principal); R53.1 Weakness; E78.00 Pure hypercholesterolemia, unspecified; I10 Essential (primary) hypertension; Z98.890 Other specified postprocedural states; Z88.1 Allergy status to other antibiotic agents; Z79.899 Other long term (current) drug therapy; Z20.822 Contact with and (suspected) exposure to COVID-19
CPT/HCPCS: 99285; 96365; 87426; 80048; 80076; 81001; 84484; 85025; 87077; 87086; 87804; 36415; 93005; J1956; 87186